=== PATIENT | male | born 1965 | race Caucasian/White ===

== ENCOUNTER 2018-08-13 04:34 | Emergency (ER) | payer OTHER ==
[~2018-08-13] VITALS: Ht 175.3 cm; Wt 72.6 kg
[~2018-08-13 04:34] MED LIST: FLEXERIL10 MG PO; LIDODERM30 EA TP; PERCOCET 5/3251 TAB PO
[2018-08-13] MEDS ORDERED: COZAAR50 MG (04:51)
[2018-08-13] MEDS ORDERED: HYDROXYCHLOROQ200 MG (04:52)
[2018-08-13] MEDS ORDERED: SULFASALAZINE500 MG (04:53)
[2018-08-13] MEDS ORDERED: ULTRACET PO (08:09)
[2018-08-13] MEDS ORDERED: SKELAXIN800 MG PO (08:09)
== END 2018-08-13 08:54 | disposition home or self-care (01) ==
LOC: ER 04:34
DX: M75.52 Bursitis of left shoulder (principal)